=== PATIENT | female | born 1995 | race Two or more races ===

== ENCOUNTER 2023-03-26 13:10 | Outpatient (AMB) | payer OTHER, SELFPAY ==
--- NOTE | 2023-03-26 13:19 | MHC.PC.OV ---
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 by: Self / Same As Patient Allergies No Known Allergies Allergy (Verified 03/26/23 13:28) Medication List - Last Reconciled 03/26/23 by Jaswant Monique CNP No Known Home Meds Tobacco use date assessed: 03/26/23 Dental Screening Dental Screen Date: 03/26/23 Did you have a dental visit in the last 12 months?: Yes Did you have a dental problem in the last 6 months where you did not have access to dental care?: No Was dental information given to patient?: Patient has dentist HPI HPI Comments History of Present Illness Details 28-year-old female presents for transfer of care Her former PCP is who has no longer with the practice. Her last physical exam was on 08/20/2021. She had not had blood work done in a long time She denies significant past medical history. She is taking any medications currently She notes that she is leaving later this month for a year journey for hiking [place] of [place] [facility] and [place], and possible in other countries. She requests a medication to help with altitude sickness. She reports history of headaches, nausea, and fatigue above 700 feet. Nonsmoker, nondrinking, occasional marijuana edibles She notes that notes that she is sexually active, in a polygamous relationship, uses barrier contraceptives, and has no concerns for STDs She notes that her last pap smear test was in January 2023: normal [facility] Medical History (Updated 03/26/23 @ 18:00 by Jaswant Monique CNP) No pertinent past medical history Surgical History (Updated 03/26/23 @ 13:25 by Susy Juares MA) No pertinent past surgical history Family History (Updated 03/26/23 @ 13:25 by Susy Juares MA) Other Chronic mental illness Social History Household Members: Other Both parents involved: Yes Housing: House Patient Tobacco Use Status: Never used Tobacco e-Cigarette/Vaping Use: Never Used service: No Current occupational status: employed 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 1. Little interest or pleasure in doing things: not at all 2. Feeling down, depressed, or hopeless: not at all 3. Trouble falling or staying asleep, or sleeping too much: not at all 4. Feeling tired or having little energy: not at all 5. Poor appetite or overeating: not at all 6. Feeling bad about yourself - or that you are a failure or have let yourself or your family down: not at all 7. Trouble concentrating on things, such as reading the newspaper or watching television: not at all 8. Moving or speaking so slowly that other people could have noticed. Or the opposite - being so fidgety or restless that you have been moving around a lot more than usual: not at all 9. Thoughts that you would be better off or of hurting yourself in some way: not at all Total score: 0 Depression Screening Interpretation: Negative Depression Screening Done: Yes 25486 - PHQ-9 Billing: Yes Source: Developed by Drs. Luis Moncada, Kenzie Infante, Horacio Anguiano and colleagues, with an educational kandis from [employer]. Thrive Questionnaire Date Thrive assessed: 03/26/23 I am a: Patient What is your living situation today?: I have a steady place to live Within the past 12 months, did the food you bought not last and you didn't have the money to get more?: Never true Within the past 12 months, did you worry whether your food would run out before you got money to buy more?: Never true Do you have trouble paying for medicines?: No Do you have trouble getting transportation to medical appointments?: No Do you have trouble paying your heating and electricity bill?: No Do you have trouble taking care of your child, family member or friend?: No Do you have trouble with day-to-day activities such as bathing, preparing meals, shopping, managing finances, etc.?: No Are you currently unemployed and looking for a job?: No Are you interested in more education?: No Please select the resources that you would like help with: None Currently or been in a relationship where the following occur: no concerns reported THRIVE Score: 0 AUDIT C Alcohol Use Questionnaire (AUDIT-C) 1. How often do you have a drink containing alcohol?: Never 3. How often do you have six or more drinks on one occasion?: Never Total Score: 0 VINAY-7 AMB Questionnaire VINAY-7 Date VINAY - 7 assessed: 03/26/23 Feeling nervous, anxious, or on edge: 1 = Several days Not being able to stop or control worryin = Not at all Worrying too much about different things: 0 = Not at all Trouble relaxin = More than half the days Being so restless that it is hard to sit still: 0 = Not at all Becoming easily annoyed or irritable: 0 = Not at all Feeling afraid as if something awful might happen: 0 = Not at all Total VINAY-7 score (0-4 normal; 5-9 mild; 10-14 moderate; 15-21 severe): 3 Source: Developed by Drs. Luis Moncada, Kenzie Infante, Horacio Anguiano and colleagues, with an educational kandis from [employer]. VINAY-7 Assessment Billing VINAY-7 Assessment Tool: VINAY-7 Assessment 41508 Review of Systems Const Details: Denies chills, Denies fatigue, Denies fever(s), Denies headache(s) and Denies weakness HEENT Denies change in vision, Denies dizziness, Denies headache(s), Denies hearing loss, Denies nasal congestion, Denies sinus pain, Denies sinus pressure and Denies sore throat Card Denies chest pain, Denies lightheadedness, Denies dyspnea and Denies other (palpitations) Resp Denies cough, Denies dyspnea and Denies wheezing GI Denies abdominal pain, Denies melena, Denies hematochezia, Denies change in bowel habits, Denies dyspepsia and Denies nausea Denies hematuria and Denies dysuria Musc Denies abnormal gait, Denies myalgias, Denies arthralgias, Denies numbness and Denies tingling Skin/Breast Denies rash, Denies unusual bruising and Denies wounds Neuro Denies abnormal gait, Denies dizziness, Denies headache(s), Denies memory loss, Denies numbness, Denies Sensory deficit (Neuro), Denies tingling and Denies weakness Psych Denies anxiety, Denies depression and Denies memory loss Endo Denies cold intolerance, Denies fatigue, Denies heat intolerance, Denies polydipsia and Denies polyuria Addison/Lymph Denies easy bleeding and Denies easy bruising Aller/Immun Denies wheezing Physical exam (Primary Care) Vital Signs: Last Vital Signs Temp 97.7 F 03/26/23 13:20 Pulse 79 03/26/23 13:20 Resp 13 03/26/23 13:20 BP 102/70 03/26/23 13:20 Pulse Ox 99 03/26/23 13:20 Oxygen Delivery Method Room Air 03/26/23 13:20 BMI result Body Mass Index 25.1 Tobacco/Smoking Status: Tobacco use Status Tobacco use date assessed 03/26/23 03/26/23 13:27 Patient Tobacco Use Status Never used Tobacco 03/26/23 13:27 Tobacco use type 02/11/23 13:14 e-Cigarette/Vaping Use Never Used 03/26/23 13:27 PHQ-9: PHQ-9 Score PHQ-9: Total score 0 03/26/23 13:27 Depression Screening Interpretation: Negative Thrive Assessment: Date of Thrive Assessment Date Thrive assessed 03/26/23 03/26/23 13:27 Currently or been in a relationship where the following occur: no concerns reported Const Other: General: no acute distress, well developed, alert and awake Nutritional Appearance: well nourished Orientation/consciousness: patient oriented x3 HENMT Head: Yes normocephalic and Yes atraumatic Ears: hearing grossly normal bilaterally and TM's normal bilaterally General nose exam: Normal external nose present and Normal nares present Mouth: Normal oral and palatal mucosa present and moist mucous membranes Teeth and gingiva: dentition normal Throat: Yes oropharynx normal Eyes Pupils: Equal, round and reactive pupils present and Pupil accommodation reflex normal EOM: EOMs intact bilaterally Neck Neck: Yes normal visual inspection, Yes no lymphadenopathy and Yes trachea midline Thyroid: Thyroid normal Carotids: no bruits Lymphatic: no lymphadenopathy noted Chest Chest palpation & inspection: normal inspection of the chest Resp Effort & Inspection: normal respiratory effort Auscultation: clear to auscultation bilaterally Cardio Rate: regular rate Rhythm: regular rhythm Heart sounds: S1 normal heart sound present, S2 normal heart sound present, no gallops, no murmurs and no rubs Bruits: no abdominal aortic bruits and no carotid bruits GI Palpation (GI): No Abdominal aortic bruit present, Soft to palpation, nontender, No hepatosplenomegaly present and No Rebound tenderness present Auscultation: normal bowel sounds General: Yes no CVA tenderness Back/Spine/Pelvis Back: no CVA tenderness Cervical Spine: cervical ROM normal and No Cervical spine tenderness Thoracic/Lumbar Spine: thoraco-lumbar ROM normal, No pain with thoraco-lumbar ROM, No thoracic spinal tenderness and No lumbar spinal tenderness Skin General: warm and dry. Normal skin color. Normal skin turgor Lesions: no lesions Rashes: no rashes Trauma: no lacerations or abrasions Wounds: no wounds Nails: normal Neuro General: patient oriented x3, gait normal and CN's II-XI intact bilaterally Cranial nerves: Yes Equal, round and reactive pupils present Cognition (Neuro): normal cognition Gait exam (Neuro): Normal gait present Motor exam (neuro): 5/5 motor strength present throughout Sensory Exam: No Sensory deficit (Neuro) Deep tendon reflexes (DTR's): Right patellar reflex intensity grade: 2+ and Left patellar reflex intensity grade: 2+ Extrem General: Yes normal to inspection, No edema and No calf tenderness Psych Appearance: grossly normal Affect: normal affect Attitude: cooperative Thought process: Normal thought process present Assessment and Plan Assessment & Plan (1) Normal physical exam: Code(s): Z00.00 - Encounter for general adult medical examination without abnormal findings Plan: No significant physical restrictions or limitations noted Labs ordered. Advised to schedule a telehealth visit for review of lab results Healthy diet and routine exercise encouraged Follow-up with symptoms or concerns Verbalized understanding and agreed with treatment plan (2) Altitude sickness preventative measures: Code(s): Z29.89 - Encounter for other specified prophylactic measures Plan: She will be hiking [place] of the country, [place], and possibly other countries for a year She has history of headaches, nausea, and fatigue above 700 feet Acetazolamide as prescribed Follow-up as needed Verbalized understanding and agreed with the treatment plan (3) Laboratory tests ordered as part of a complete physical exam (CPE): Code(s): Z00.00 - Encounter for general adult medical examination without abnormal findings Plan: Fasting labs ordered as part of a complete physical exam. Advised to fast for at least 10 hours before getting labs drawn. May drink water Verbalized understanding and agreed with treatment plan. Orders: Orders Complete Blood Count Auto Diff Today Z00.00 - Encounter for general adult medical examination without abnormal findings Comprehensive Graham. Panel Fast Today Z00.00 - Encounter for general adult medical examination without abnormal findings Lipid Panel Today Z00.00 - Encounter for general adult medical examination without abnormal findings UA CC w/rflx Micro + Cult Today Z00.00 - Encounter for general adult medical examination without abnormal findings TSH reflex Free T4 Today Z00.00 - Encounter for general adult medical examination without abnormal findings Medications: New acetazolamide Start day before ascent and continue 2 to 3 days at maximum altitude; may use once at night thereafter to improve sleep 125 mg PO BID 14 days PRN 28 tabs 4RF altitude sickness Coding Level of Care Code New Pt Prev Care 18-39yr(79014 Diagnoses Normal physical exam Z00.00 Altitude sickness preventative measures Z29.89 Laboratory tests ordered as part of a complete physical exam (CPE) Z00.00 Additional Codes VINAY-7 Assessment Billing - VINAY-7 Assessment Tool: VINAY-7 Assessment 79606 ([id number])
[2023-03-26 13:20] VITALS: BP 102/70; PULSE 79; RESP 13; TEMP 36.5; O2SAT 99; BMI 25.1
== END 2023-03-26 13:57 | disposition home or self-care (01) ==
PROVIDERS: PCP Hospitalist; Visit Provider Nurse Practitioner Family
DX: Z00.00 Encounter for general adult medical examination without abnormal findings (principal); Z29.89 Encounter for other specified prophylactic measures
CPT/HCPCS: 99385

== ENCOUNTER 2023-04-02 09:19 | Outpatient (REF) | payer OTHER, SELFPAY ==
[2023-04-02 09:32] LABS: MANUAL DIFF FLAG NO
[2023-04-02 09:54] LABS: Appearance Urine Clear; Color Urine Yellow; Glucose Urine UA Negative (Negative); Leukocyte Esterase Urine Negative (Negative); Nitrite Urine Negative (Negative); PH 6.5 (5.0-9.0); Specific Gravity - Urine >= 1.030 (1.005-1.025); Urine Blood Negative (Negative); Urine Ketones Negative (Negative); Urine Protein Negative (Neg-Trace)
[2023-04-02 10:01] LABS: Basophils Absolute Auto 0.1 X10*3/uL (0.0-0.2); Eosinophils Absolute Auto 0.3 X10*3/uL (0.0-0.4); Eosinophils Percent Auto 3.6 % (0-4); Hematocrit 38.5 % (37.0-47.0); Hemoglobin 12.9 g/dl (12.0-16.0); Imm Gran Abs Auto 0.02 X10*3/uL (0.00-0.03); Imm Gran Pct Auto 0.3 % (0.0-0.4); Lymphocytes Absolute Auto 2.3 X10*3/uL (1.2-4.9); Lymphocytes Percent Auto 32.1 % (20-40); Mean Corpuscular HGB Conc 33.5 g/dl (31.0-35.0); Mean Corpuscular Hemoglobin 30.1 pg (27.0-33.0); Mean Platelet Volume 9.3 fL (9.4-12.3); Monocytes Absolute Auto 0.8 X10*3/uL (0.1-1.2); Monocytes Percent Auto 10.3 % (2-11); Neutrophils Absolute Auto 3.8 x10*3/uL (2.0-8.3); Neutrophils Percent Auto 52.7 % (45-73); Platelet Count 361 X10*3/uL (160-400); Red Blood Count 4.28 X10*6/uL (4.20-5.50); Red Cell Distribution Width 11.9 % (11.0-16.0); White Blood Count 7.3 X10*3/uL (4.8-10.8)
[2023-04-02 10:33] LABS: Alanine Aminotransferase 11 U/L (0-31); Albumin Level 4.2 g/dL (3.5-5.0); Alkaline Phosphatase 44 U/L (39-117); Anion Gap 10 (12-20); Aspartate Amino Transferase 17 U/L (5-31); Bilirubin Total 0.4 mg/dL (0.0-1.0); Blood Urea Nitrogen 12 mg/dL (9-16); Carbon Dioxide 26 mmol/L (22-29); Chloride 108 mmol/L (96-108); Cholesterol 194 mg/dL (<200); Estimated Glomerular Filt Rate > 60; Glucose Fasting 93 mg/dL (60-99); HDL Cholesterol 47 mg/dL (>40); LDL Cholesterol Calculated 132 mg/dL (<100); Potassium 4.4 mmol/L (3.3-5.1); Sodium 140 mmol/L (135-145); Total Protein 6.9 g/dL (6.5-8.0); Triglycerides 79 mg/dL (<150)
[2023-04-02 10:51] LABS: TSH reflex Free T4 1.16 uIU/mL (0.32-4.0)
== END 2023-04-02 09:20 | disposition home or self-care (01) ==
LOC: HO.LAB 09:19
PROVIDERS: PCP Nurse Practitioner Family; Visit Provider Nurse Practitioner Family
DX: Z00.00 Encounter for general adult medical examination without abnormal findings (principal)
CPT/HCPCS: 36415; 80053; 80061; 81003; 84443; 85025

== ENCOUNTER 2023-04-16 14:26 | Outpatient (AMB) | payer OTHER, SELFPAY ==
--- NOTE | 2023-04-16 14:21 | A.OFFPC_ITS ---
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 Accompanied by: Self / Same As Patient Allergies No Known Allergies Allergy (Verified 04/16/23 14:22) Tobacco use date assessed: 03/26/23 HPI HPI Comments History of Present Illness Details 28-year-old female presents for teleheal th visit for recent lab reviews Her Lab results are unremarkable except for slightly elevated LDL, 132 She offers no complaints and denies acute symptoms at this time [facility] Medical History (Updated 04/16/23 @ 15:17 by Jaswant Monique CNP) No pertinent past medical history Surgical History (Updated 03/26/23 @ 13:25 by Susy Juares MA) No pertinent past surgical history Family History (Updated 03/26/23 @ 13:25 by Susy Juares MA) Other Chronic mental illness Social History Household Members: Other Both parents involved: Yes Housing: House Patient Tobacco Use Status: Never used Tobacco e-Cigarette/Vaping Use: Never Used service: No Current occupational status: employed 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 Luis Moncada, Kenzie Infante, Horacio Anguiano and colleagues, with an educational kandis from [employer]. Review of Systems Const Details: Const Denies chills, Denies fatigue, Denies fever(s), Denies headache(s) and Denies weakness ENT Denies dizziness and Denies headache(s) Card Denies chest pain, Denies lightheadedness, Denies dyspnea and Denies other (Palpitations) Resp Denies cough, Denies dyspnea, Denies wheezing and Denies other ( shortness of breath) GI Denies abdominal pain, Denies melena, Denies hematochezia, Denies change in bowel habits, Denies dyspepsia and Denies nausea Denies hematuria and Denies dysuria Musc Denies abnormal gait, Denies myalgias, Denies arthralgias, Denies numbness and Denies tingling Skin/Breast Denies rash, Denies unusual bruising and Denies wounds Neuro Denies abnormal gait, Denies dizziness, Denies headache(s), Denies memory loss, Denies numbness, Denies Sensory deficit (Neuro), Denies tingling and Denies weakness Psych Denies anxiety, Denies depression, Denies memory loss Endo Denies cold intolerance, Denies fatigue, Denies heat intolerance, Denies polydipsia and Denies polyuria Aller/Immun Denies wheezing Physical exam (Primary Care) Tobacco/Smoking Status: Tobacco use Status Tobacco use date assessed 03/26/23 04/16/23 14:26 Patient Tobacco Use Status Never used Tobacco 04/16/23 14:26 Tobacco use type 02/11/23 13:14 e-Cigarette/Vaping Use Never Used 04/16/23 14:26 Thrive Assessment: Date of Thrive Assessment Date Thrive assessed 03/26/23 04/16/23 14:26 Const Other: Telehealth visit. No physical exam Telehealth Telehealth Location of provider rendering services: practice address Location of patient: address on file Patient Identification confirmed using: Name, : Yes Telehealth method: voice only Patient verbally consented to treatment: Yes Patient verbally consented to billing insurance company: Yes Patient informed of any privacy concerns related to visit: Yes Assessment and Plan Assessment & Plan (1) Elevated LDL cholesterol level: Code(s): E78.00 - Pure hypercholesterolemia, unspecified Plan: LDL is slightly elevated, 132 Advised to limit foods high in saturated fat and avoid foods high trans fat Routine exercise encouraged Encouraged to schedule a complete physical exam for next year Return sooner with symptoms or concerns Verbalized understanding and agreed with treatment plan Medications: Refilled acetazolamide Start day before ascent and continue 2 to 3 days at maximum altitude; may use once at night thereafter to improve sleep 125 mg PO BID PRN 28 tabs 4RF altitude sickness 14 days Coding Level of Care Code Tele Est Pt Level 2 (38100) Diagnoses Elevated LDL cholesterol level E78.00 Time Spent (min) 10
== END 2023-04-16 16:23 | disposition home or self-care (01) ==
LOC: HO.HMGFM 14:27
PROVIDERS: PCP Nurse Practitioner Family; Visit Provider Nurse Practitioner Family
DX: E78.00 Pure hypercholesterolemia, unspecified (principal)
CPT/HCPCS: 99212

== ENCOUNTER 2024-07-24 12:44 | Outpatient (AMB) | payer OTHER, SELFPAY ==
--- NOTE | 2024-07-24 12:46 | MHC.PC.OV ---
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 Required: No Is last menstrual period known: Yes Last menstrual period: 07/07/24 Post menopausal: No Patient : No Allergies No Known Allergies Allergy (Verified 07/24/24 12:59) Medication List - Last Reconciled 07/24/24 by Jaswant Monique CNP acetazolamide orally; Tobacco use date assessed: 07/24/24 Dental Screening Dental Screen Date: 07/24/24 Did you have a dental visit in the last 12 months?: No Did you have a dental problem in the last 6 months where you did not have access to dental care?: No Was dental information given to patient?: Patient has dentist HPI HPI Comments History of Present Illness Details 29-year-old female presents for an extended physical exam. She requests a letter for [employer] work clearance. Acute issue(s) - None Past Medical History - Elevated LDL Social History - Nonsmoker. Does not vape. Does not drink alcohol. Smoke cannabis occasionally - Has been making healthy dietary choices. Exercises routinely. Generally sleep well Health maintenance - Last eye exam was several years ago. Referred to Ophthalmology for routine eye exam - Last dental visit was over a years ago. She has a dental appointment next week - Last tetanus vaccine was more than 10 years ago; received Tdap vaccine today - She notes that she is up-to-date on the full vaccine - Last pap smear test was in 2022 at [facility]: normal. 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 1. Little interest or pleasure in doing things: not at all 2. Feeling down, depressed, or hopeless: not at all 3. Trouble falling or staying asleep, or sleeping too much: not at all 4. Feeling tired or having little energy: not at all 5. Poor appetite or overeating: not at all 6. Feeling bad about yourself - or that you are a failure or have let yourself or your family down: not at all 7. Trouble concentrating on things, such as reading the newspaper or watching television: not at all 8. Moving or speaking so slowly that other people could have noticed. Or the opposite - being so fidgety or restless that you have been moving around a lot more than usual: not at all 9. Thoughts that you would be better off or of hurting yourself in some way: not at all Total score: 0 Depression Screening Interpretation: Negative Depression Screening Done: Yes Source: Developed by Drs. Luis Moncada, Kenzie Infante, Horacio Anguiano and colleagues, with an educational kandis from [employer]. Thrive Questionnaire Date Thrive assessed: 03/26/23 I am a: Patient What is your living situation today?: I have a steady place to live Within the past 12 months, did the food you bought not last and you didn't have the money to get more?: Never true Within the past 12 months, did you worry whether your food would run out before you got money to buy more?: Never true Do you have trouble paying for medicines?: No Do you have trouble getting transportation to medical appointments?: No Do you have trouble paying your heating and electricity bill?: No Do you have trouble taking care of your child, family member or friend?: No Do you have trouble with day-to-day activities such as bathing, preparing meals, shopping, managing finances, etc.?: No Are you currently unemployed and looking for a job?: No Are you interested in more education?: No Please select the resources that you would like help with: None Currently or been in a relationship where the following occur: No concerns reported and I choose not to answer THRIVE Score: 0 AUDIT C Alcohol Use Questionnaire (AUDIT-C) 1. How often do you have a drink containing alcohol?: Never Total Score: 0 VINAY-7 AMB Questionnaire VINAY-7 Date VINAY - 7 assessed: 03/26/23 Feeling nervous, anxious, or on edge: 1 = Several days Not being able to stop or control worryin = Not at all Worrying too much about different things: 0 = Not at all Trouble relaxin = Not at all Being so restless that it is hard to sit still: 0 = Not at all Becoming easily annoyed or irritable: 0 = Not at all Feeling afraid as if something awful might happen: 1 = Several days Total VINAY-7 score (0-4 normal; 5-9 mild; 10-14 moderate; 15-21 severe): 2 Source: Developed by Drs. Luis Moncada, Kenzie Infante, Horacio Anguiano and colleagues, with an educational kandis from [employer]. Review of Systems Const Details: Denies chills, Denies fatigue, Denies fever(s), Denies headache(s) and Denies weakness HEENT Denies change in vision, Denies dizziness, Denies headache(s), Denies hearing loss, Denies nasal congestion, Denies sinus pain, Denies sinus pressure and Denies sore throat Card Denies chest pain, Denies lightheadedness, Denies dyspnea and Denies other (palpitations) Resp Denies cough, Denies dyspnea and Denies wheezing GI Denies abdominal pain, Denies melena, Denies hematochezia, Denies change in bowel habits, Denies dyspepsia and Denies nausea Denies hematuria and Denies dysuria Musc Denies abnormal gait, Denies myalgias, Denies arthralgias, Denies numbness and Denies tingling Skin/Breast Denies rash, Denies unusual bruising and Denies wounds Neuro Denies abnormal gait, Denies dizziness, Denies headache(s), Denies memory loss, Denies numbness, Denies Sensory deficit (Neuro), Denies tingling and Denies weakness Psych Denies anxiety, Denies depression and Denies memory loss Endo Denies cold intolerance, Denies fatigue, Denies heat intolerance, Denies polydipsia and Denies polyuria Addison/Lymph Denies easy bleeding and Denies easy bruising Aller/Immun Denies wheezing Physical exam (Primary Care) Vital Signs: Last Vital Signs Temp 98.0 F 07/24/24 12:51 Pulse 68 07/24/24 12:51 Resp 16 07/24/24 12:51 BP 121/74 07/24/24 12:51 Pulse Ox 100 07/24/24 12:51 Oxygen Delivery Method Room Air 07/24/24 12:51 BMI result Body Mass Index 24.3 Tobacco/Smoking Status: Tobacco use Status Tobacco use date assessed 07/24/24 07/24/24 12:54 Patient Tobacco Use Status Never used Tobacco 07/24/24 12:49 Tobacco use type 02/11/23 13:14 e-Cigarette/Vaping Use Never Used 07/24/24 12:49 PHQ-9: PHQ-9 Score PHQ-9: Total score 0 07/24/24 13:20 Depression Screening Interpretation: Negative Thrive Assessment: Date of Thrive Assessment Date Thrive assessed 03/26/23 07/24/24 12:49 Currently or been in a relationship where the following occur: No concerns reported and I choose not to answer Const Other: General: no acute distress, well developed, alert and awake Nutritional Appearance: well nourished Orientation/consciousness: patient oriented x3 HENMT Head: Yes normocephalic and Yes atraumatic Ears: hearing grossly normal bilaterally and TM's normal bilaterally General nose exam: Normal external nose present and Normal nares present Mouth: Normal oral and palatal mucosa present and moist mucous membranes Teeth and gingiva: dentition normal Throat: Yes oropharynx normal Eyes Pupils: Equal, round and reactive pupils present and Pupil accommodation reflex normal EOM: EOMs intact bilaterally Neck Neck: Yes normal visual inspection, Yes no lymphadenopathy and Yes trachea midline Thyroid: Thyroid normal Carotids: no bruits Lymphatic: no lymphadenopathy noted Chest Chest palpation & inspection: normal inspection of the chest Resp Effort & Inspection: normal respiratory effort Auscultation: clear to auscultation bilaterally Cardio Rate: regular rate Rhythm: regular rhythm Heart sounds: S1 normal heart sound present, S2 normal heart sound present, no gallops, no murmurs and no rubs Bruits: no abdominal aortic bruits and no carotid bruits GI Palpation (GI): No Abdominal aortic bruit present, Soft to palpation, nontender, No hepatosplenomegaly present and No Rebound tenderness present Auscultation: normal bowel sounds General: Yes no CVA tenderness Back/Spine/Pelvis Back: no CVA tenderness Cervical Spine: cervical ROM normal and No Cervical spine tenderness Thoracic/Lumbar Spine: thoraco-lumbar ROM normal, No pain with thoraco-lumbar ROM, No thoracic spinal tenderness and No lumbar spinal tenderness Skin General: warm and dry. Normal skin color. Normal skin turgor Lesions: no lesions Rashes: no rashes Trauma: no lacerations or abrasions Wounds: no wounds Nails: normal Neuro General: patient oriented x3, gait normal and CN's II-XI intact bilaterally Cranial nerves: Yes Equal, round and reactive pupils present Cognition (Neuro): normal cognition Gait exam (Neuro): Normal gait present Motor exam (neuro): 5/5 motor strength present throughout Sensory Exam: No Sensory deficit (Neuro) Deep tendon reflexes (DTR's): Right patellar reflex intensity grade: 2+ and Left patellar reflex intensity grade: 2+ Extrem General: Yes normal to inspection, No edema and No calf tenderness Psych Appearance: grossly normal Affect: normal affect Attitude: cooperative Thought process: Normal thought process present Immunizations Boostrix Tdap 2.5 Lf unit-8 mcg-5 Lf/0.5 mL intramuscular syringe Performing Provider: Jaswant Monique CNP Performing Location: [facility] Administered by: Christopher Treadwell RN on 07/24/24 13:18 Dose Route Admin Location Dispensed Lot Number Expiration Date NDC Multimedia Engineer 0.5 mL IM Left Deltoid 0.5 mL [id number] 10/13/26 05602-749-27 [employer] VIS Given Date VIS Provided VIS Publication Date 07/24/24 Single Vaccine 20 Eligibility Eligibility Date Funding Source Not [facility] Eligible 07/24/24 Private Coding Level of Care Code Est Pt Prev Care 18-39y(69795) Diagnoses Normal physical exam Z00.00 Eye exam, routine Z01.00 Laboratory tests ordered as part of a complete physical exam (CPE) Z00.00 Assessment & Plan Assessment & Plan (1) Normal physical exam: Code(s): Z00.00 - Encounter for general adult medical examination without abnormal findings Category: Medical Plan: Normal physical exam of a 29-year-old female. No significant functional limitation noted. Healthy diet and routine exercise encouraged. Advised to perform lab work and follow-up for a telehealth visit in 2-3 weeks. Return sooner with symptoms or concerns. Verbalized understanding and agreed with treatment plan. Letter given for work clearance. (2) Eye exam, routine: Code(s): Z01.00 - Encounter for examination of eyes and vision without abnormal findings Category: Medical Plan: Last eye exam was several years ago. Referred to Ophthalmology for routine eye exam. (3) Laboratory tests ordered as part of a complete physical exam (CPE): Code(s): Z00.00 - Encounter for general adult medical examination without abnormal findings Category: Medical Plan: Fasting labs ordered as part of a complete physical exam. Advised to fast for at least 10 hours before getting labs drawn. May drink water Verbalized understanding and agreed with treatment plan. Orders: Orders Lipid Panel Today Z00.00 - Encounter for general adult medical examination without abnormal findings Microalbumin, Random (w Creat) Today Z00.00 - Encounter for general adult medical examination without abnormal findings TSH reflex Free T4 Today Z00.00 - Encounter for general adult medical examination without abnormal findings UA CC w/rflx Micro + Cult Today Z00.00 - Encounter for general adult medical examination without abnormal findings TDaP Immunization Today Z23 - Encounter for immunization Complete Blood Count Auto Diff Today Z00.00 - Encounter for general adult medical examination without abnormal findings Comprehensive [place]. Panel Fast Today Z00.00 - Encounter for general adult medical examination without abnormal findings Vitamin D 25-OH Total Today Z00.00 - Encounter for general adult medical examination without abnormal findings Referrals Ophthalmology Referral Z01.00 - Encounter for examination of eyes and vision without abnormal findings
[2024-07-24 12:51] VITALS: BP 121/74; PULSE 68; RESP 16; TEMP 36.7; O2SAT 100; BMI 24.3
== END 2024-07-24 13:17 | disposition home or self-care (01) ==
LOC: HO.HMCFM 12:45
PROVIDERS: PCP Nurse Practitioner Family; Visit Provider Nurse Practitioner Family
DX: Z00.00 Encounter for general adult medical examination without abnormal findings (principal); Z23 Encounter for immunization

== ENCOUNTER → 2024-07-24 12:44 | Outpatient (BNVA) | payer OTHER, SELFPAY | PROVIDERS: PCP Nurse Practitioner Family; Visit Provider Nurse Practitioner Family | DX: Z00.00 Encounter for general adult medical examination without abnormal findings (principal); Z23 Encounter for immunization | CPT/HCPCS: 90471; 90715; 99395 ==

== ENCOUNTER 2024-08-14 10:17 | Outpatient (REF) | payer OTHER, SELFPAY ==
[2024-08-14 10:31] LABS: MANUAL DIFF FLAG NO
[2024-08-14 10:54] LABS: Basophils Absolute Auto 0.1 X10*3/uL (0.0-0.2); Basophils Percent Auto 1.3 % (0-2); Eosinophils Absolute Auto 0.3 X10*3/uL (0.0-0.4); Eosinophils Percent Auto 5.7 % (0-4); Hematocrit 36.1 % (37.0-47.0); Imm Gran Abs Auto 0.01 X10*3/uL (0.00-0.03); Imm Gran Pct Auto 0.2 % (0.0-0.4); Lymphocytes Percent Auto 41.1 % (20-40); Mean Corpuscular HGB Conc 33.2 g/dl (31.0-35.0); Mean Corpuscular Hemoglobin 29.8 pg (27.0-33.0); Mean Corpuscular Volume 89.6 fL (80.0-98.0); Mean Platelet Volume 9.8 fL (9.4-12.3); Monocytes Absolute Auto 0.4 X10*3/uL (0.1-1.2); Monocytes Percent Auto 8.9 % (2-11); Neutrophils Percent Auto 42.8 % (45-73); Platelet Count 257 X10*3/uL (160-400); Red Blood Count 4.03 X10*6/uL (4.20-5.50); Red Cell Distribution Width 11.8 % (11.0-16.0); White Blood Count 4.7 X10*3/uL (4.8-10.8)
[2024-08-14 10:59] LABS: Appearance Urine Clear; Color Urine Yellow; Glucose Urine UA Negative (Negative); Leukocyte Esterase Urine Trace (Negative); Nitrite Urine Negative (Negative); PH 6.5 (5.0-9.0); UMIC TRIGGER UACC YES; Urine Blood Negative (Negative); Urine Ketones Negative (Negative); Urine Protein Negative (Neg-Trace)
[2024-08-14 11:01] LABS: Bacteria Urine None Seen (None Seen); Hyaline Casts Urine 0-2 /LPF (0-2); RBC Urine 0-2 /HPF (0-2); WBC Urine 0-5 /HPF (0-5)
[2024-08-14 11:51] LABS: Alanine Aminotransferase 8 U/L (0-31); Albumin Level 3.9 g/dL (3.5-5.0); Alkaline Phosphatase 36 U/L (39-117); Anion Gap 9 (12-20); Aspartate Amino Transferase 16 U/L (5-31); Bilirubin Total 0.5 mg/dL (0.0-1.0); Blood Urea Nitrogen 7 mg/dL (9-16); Calcium 8.4 mg/dL (8.4-10.2); Carbon Dioxide 24 mmol/L (22-29); Chloride 111 mmol/L (96-108); Cholesterol 154 mg/dL (<200); Estimated Glomerular Filt Rate > 60; Glucose Fasting 92 mg/dL (60-99); HDL Cholesterol 40 mg/dL (>40); LDL Cholesterol Calculated 105 mg/dL (<100); Potassium 4.6 mmol/L (3.3-5.1); Sodium 139 mmol/L (135-145); Total Protein 6.1 g/dL (6.5-8.0); Triglycerides 45 mg/dL (<150)
[2024-08-14 11:51] LABS: Creatinine Urine 185.24 mg/dL; Microalbum/Creatinine Ratio Ur 3.2 ug/mg cr (<30)
[2024-08-14 12:07] LABS: TSH reflex Free T4 0.28 uIU/mL (0.32-4.0); Vitamin D 25-OH Total 28.1 ng/mL (>30)
[2024-08-14 12:57] LABS: Free T4 (Free Thyroxine) 1.03 ng/dL (0.71-1.85)
== END 2024-08-14 10:18 | disposition home or self-care (01) ==
LOC: HO.LAB 10:17
PROVIDERS: PCP Nurse Practitioner Family; Visit Provider Nurse Practitioner Family
DX: Z00.00 Encounter for general adult medical examination without abnormal findings (principal)
CPT/HCPCS: 36415; 80053; 80061; 81001; 82043; 82306; 82570; 84439; 84443; 85025

== ENCOUNTER 2024-08-28 12:31 | Outpatient (AMB) | payer OTHER, SELFPAY ==
--- NOTE | 2024-08-28 12:28 | A.OFFPC_ITS ---
Intake Visit Reasons: Telehealth 2-3 wks labs review Intake Note: patient here for 2-3 wks Telehealth follow up for lab review [employer] Required: No Is last menstrual period known: Yes Last menstrual period: 08/05/24 Post menopausal: No Patient : No Allergies No Known Allergies Allergy (Verified 08/28/24 12:29) Tobacco use date assessed: 08/28/24 Dental Screening Dental Screen Date: 08/28/24 Did you have a dental visit in the last 12 months?: Yes Did you have a dental problem in the last 6 months where you did not have access to dental care?: No Was dental information given to patient?: Patient has dentist HPI HPI Comments History of Present Illness Details 29-year-old [facility] of recent lab results. She admits to making healthy lifestyle changes. She offers no complaints and denies acute symptoms at this time. 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 Cognitive needs: No Hearing needs: No Vision needs: No Female Reproductive History Menstrual Date of last menstrual period: 08/05/24 Questionnaire Thrive Questionnaire Date Thrive assessed: 07/24/24 I am a: Patient What is your living situation today?: I have a steady place to live Within the past 12 months, did the food you bought not last and you didn't have the money to get more?: Never true Within the past 12 months, did you worry whether your food would run out before you got money to buy more?: Never true Do you have trouble paying for medicines?: No Do you have trouble getting transportation to medical appointments?: No Do you have trouble paying your heating and electricity bill?: No Do you have trouble taking care of your child, family member or friend?: No Do you have trouble with day-to-day activities such as bathing, preparing meals, shopping, managing finances, etc.?: No Are you currently unemployed and looking for a job?: No Are you interested in more education?: No Please select the resources that you would like help with: None THRIVE Score: 0 AUDIT C Alcohol Use Questionnaire (AUDIT-C) 3. How often do you have six or more drinks on one occasion?: Never Total Score: 0 VINAY-7 AMB Questionnaire VINAY-7 Date VINAY - 7 assessed: 03/26/23 Source: Developed by Drs. Luis Moncada, Kenzie Infante, Horacio Anguiano and colleagues, with an educational kandis from [employer]. Review of Systems Const Details: Denies chills, Denies fatigue, Denies fever(s), Denies headache(s) and Denies weakness Cardiac Denies chest pain, Denies claudication, Denies leg edema, Denies lightheadedness, Denies palpitations, Denies dyspnea, Denies dyspnea on exertion, Denies orthopnea and Denies other (Loss of consciousness) Resp Denies cough, Denies excessive phlegm production, Denies dyspnea, Denies dyspnea on exertion, Denies snoring and Denies wheezing Physical exam (Primary Care) Tobacco/Smoking Status: Tobacco use Status Tobacco use date assessed 08/28/24 08/28/24 12:29 Patient Tobacco Use Status Never used Tobacco 08/28/24 12:29 Tobacco use type 07/24/24 13:17 e-Cigarette/Vaping Use Never Used 08/28/24 12:29 Thrive Assessment: Date of Thrive Assessment Date Thrive assessed 07/24/24 08/28/24 12:29 Const Other: Patient is alert and oriented x3. Telehealth Telehealth Telehealth Platform: Telephone Location of provider rendering services: practice address Location of patient: address on file Patient Identification confirmed using: Name, : Yes Telehealth method: voice only Patient verbally consented to treatment: Yes Patient verbally consented to billing insurance company: Yes Patient informed of any privacy concerns related to visit: Yes Coding Level of Care Code Tele Est Pt Level 3 (91714) Diagnoses Elevated LDL cholesterol level E78.00 Vitamin D deficiency E55.9 Elevated TSH R79.89 Time Spent (min) 15 Assessment & Plan Assessment & Plan (1) Elevated LDL cholesterol level: Code(s): E78.00 - Pure hypercholesterolemia, unspecified Category: Medical Plan: Recent LDL level is slightly elevated, 105, HDL level is slightly low, 40. Advised to limit foods high in saturated fat and avoid foods high in trans fat. Routine exercise encouraged. Will monitor lipid panel annually or if presents with related symptoms or concerns. Verbalized understanding and agreed with the plan. (2) Vitamin D deficiency: Code(s): E55.9 - Vitamin D deficiency, unspecified Category: Medical Plan: Recent vitamin-D level is slightly low, 28.1. Vitamin D3 25 mcg daily ordered; advised to take as prescribed. Informed that the sun is a good source of vitamin-D. Advised to perform vitamin-D blood work 2-3 days before next visit. Follow-up for telehealth visit in 6 weeks. Verbalized understanding and agreed with the plan. (3) Elevated TSH: Code(s): R79.89 - Other specified abnormal findings of blood chemistry Category: Medical Plan: Recent TSH is slightly low, 0.28, free T4 is normal. Equivocal. Will recheck TSH/T4 and make changes as needed. Orders: Orders Vitamin D 25-OH Total Today E55.9 - Vitamin D deficiency, unspecified Medications: New cholecalciferol (vitamin D3) 25 mcg PO DAILY 90 tabs 3RF 90 days
== END 2024-08-28 13:00 | disposition home or self-care (01) ==
LOC: HO.HMCFM 12:31
PROVIDERS: PCP Nurse Practitioner Family; Visit Provider Nurse Practitioner Family
DX: E78.00 Pure hypercholesterolemia, unspecified (principal); E55.9 Vitamin D deficiency, unspecified; R79.89 Other specified abnormal findings of blood chemistry

== ENCOUNTER 2024-09-06 14:37 | Outpatient (REF) | payer OTHER, SELFPAY ==
--- OUTSIDE RECORDS SUMMARY | 2024-09-06 15:10 | XMS_ITS | Clinical Summary ---
Author Organization [facility] Address [address] [place] [address] [place], [place] [id number] Phone Care Team Providers Care Aix System Administrator Name Role Phone Jaime Wells MD Primary Care Provider Allergies No known active allergies Medications No known medications Active Problems Problem Noted Date Diagnosed Date Right shoulder pain 08/11/2021 Social History Tobacco Use Types Packs/Day Years Used Date Smoking Tobacco: Never Smokeless Tobacco: Never Tobacco Cessation:Counseling Given: Not Answered Alcohol Use Standard Drinks/Week Comments No 0 (1 standard drink = 0.6 oz pur e alcohol) Education Answer Date Recorded Are you interested in more education? Not on eliu e 06/12/2022 Are you concerned about learning? Not on file 06/12/2022 No 06/12/2022 No 06/12/2022 Digital Access Answer Date Recorded No 07/10/2022 No 07/10/2022 Reliable internet access at home? Not on file 07/10/2022 Device with a working camera? Not on file Comments No Sex and Gender Information Value Date Recorded Sex Assigned at Female 02/22/2017 9:38 AM EST Legal Sex Female 8:56 PM EDT Gender Identity Female 02/22/2017 9:38 AM EST Sexual Orientation Queer 02/22/2017 9: 38 AM EST Last Filed Vital Signs Vital Sign Reading Time Taken Comments Blood Pressure 110/76 08/05/2022 8:22 AM EDT Pulse 80 08/05/2022 8:22 AM EDT Temperature 36.7 C (98.1 F) 08/05/2022 8:22 AM EDT Respiratory Rate 18 08/05/2022 8:22 AM EDT Oxygen Saturation 97% 08/05/2022 8:22 AM EDT Inhaled Oxygen Concentration - - Weight 62.6 kg (138 lb) 07/30/2022 9:51 AM EDT Height 157.5 cm (5' 2 ) 07/30/2022 9:51 AM EDT Body Mass Index 25.24 07/30/2022 9:51 AM EDT Plan of Treatment Health Maintenance Due Date Last Done Comments Adult Td,Tdap Booster 1993 DEPRESSION SCREENING 2005 HEPATITIS C SCREENING 2011 HIV ONE-TIME SCREENING (18-6 5 YEARS) 2011 PAP SMEAR 2014 COVID-19 VACCINE (2023-2 5 season) 2023 06/08/2020, 05/11/2020 SMOKING STATUS SCREENING (On ce After 26 Yrs) Completed 07/30/2022 HEPATITIS A VACCINES Aged Out No long er eligible based on patient's age to complete this topic HIB VACCINES Aged Out No longer eligi ble based on patient's age to complete this topic MENINGOCOCCAL VACCINES (ACWY) Aged Out No longer eligible based on patient's age to complete this topic MENINGOCOCCAL VACCINES (B) Aged Out N o longer eligible based on patient's age to complete this topic PNEUMOCOCCAL VACCINES (0-49 years) Aged Out No longer eligible b ased on patient's age to complete this topic Medical Devices Not on file Insurance [facility] [employer] [place] [address] [place] [address] [place] [address] [place] [address] [place] [address] [place] [address] [place] [address] [place] [address] ACO [facility] [place] [address] [place] [address] ACO Member Subscriber Plan / Payer (Ef fective 2021-Present) Name:Meggan Santos Relation to Subscriber:Self Name:Danielle Meggan Payer ID:[id number] Group ID:[id number] Type:Medicaid Address: [place] [id number] [facility] ACO Care Teams Aix System Administrator Relationship Specialty Start Date End Date Jaime Wells MD [address] [place] [id number] PCP - General Family Medicine 08/11/21 Additional Source Comments The information contained in this document represents components of the legal health record. It is not the complete legal health record.[facility]
== END 2024-09-06 14:38 | disposition home or self-care (01) ==
LOC: HO.LAB 14:37
PROVIDERS: Visit Provider Nurse Practitioner Family
DX: Z13.89 Encounter for screening for other disorder (principal)

== ENCOUNTER 2024-09-08 11:19 | Outpatient (REF) | payer OTHER, SELFPAY ==
--- OUTSIDE RECORDS SUMMARY | 2024-09-08 11:22 | XMS_ITS | Clinical Summary ---
Author Organization [facility] Address [address] [place] [address] [place], [place] [id number] Phone Care Team Providers Care Clinical Informatics Spec Name Role Phone Jaime Wells MD Primary [...] topic Medical Devices Not on file Insurance [facility] [employer] [place] [address] [place] [address] [place] [address] [place] [address] [place] [address] [place] [address] [place] [address] [place] [address] ACO [facility] [place] [place] [address] [place] [address] ACO Member Subscriber Plan / Payer (Ef fective 2021-Present) Name:Meggan Santos Relation to Subscriber:Self Name:Danielle Meggan Payer ID:[id number] Group ID:[id number] Type:Medicaid Address: [place] [id number] [facility] ACO Care Teams Clinical Informatics Spec Relationship Specialty Start Date End Date Jaime Wells MD [address] [place] [id number] PCP - General Family Medicine 08/11/21 Additional Source Comments The information contained in this document represents components of the legal health record. It is not the complete legal health record.[facility]
[2024-09-12 18:29] LABS: Entamoeba histolytica Ag Stl NOT DETECTED
== END 2024-09-08 11:20 | disposition home or self-care (01) ==
LOC: HO.LNP 11:19
PROVIDERS: Visit Provider Nurse Practitioner Family
DX: Z91.89 Other specified personal risk factors, not elsewhere classified (principal)
CPT/HCPCS: 87015; 87177; 87209; 87272; 87337

== ENCOUNTER 2024-09-22 09:16 | Outpatient (AMB) | payer OTHER, SELFPAY ==
[2024-09-22 10:09] VITALS: BP 102/74; PULSE 67; TEMP 37.2; O2SAT 99; BMI 23.6
--- NOTE | 2024-09-22 10:09 | MHC.OFFWIV ---
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 which started when she was kicked by a horse when she was 14 years of age followed by a ?head butt? from a dog presenting for evaluation after hitting her head on the side of a wall on September 10. Patient states she was pulling a drawer out of her dresser that was stuck and when the drawer came loose she fell backward striking the left side of her head on the wall. There was no loss of consciousness as a result of this injury. Patient states that she has had difficult focusing her eyes and a persistent headache on the left side. Patient denies having any lightheadedness, photophobia, floaters, fevers, chills, nausea, vomiting, neck pain or difficulty ambulating. Patient also states on August 26 she was struck by a wood beam that a child was carrying. Similarly, there was no loss of consciousness as a result of this injury. Patient has not been evaluated medically since her injury on August 26. 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 She does not wear contacts or glasses and has not had a recent ophthalmological evaluation. 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 Cognitive needs: No Hearing needs: No Vision needs: No Female Reproductive History Menstrual Date of last menstrual period: 09/18/24 Review of Systems Const All systems reviewed & are unremarkable except as noted in HPI and below Reports no additional complaints, Denies fatigue, Denies frequent falls and Reports headache(s) (left sided) Eyes Reports no additional complaints, Reports change in vision ( difficulty focusing ), Denies floaters, Denies loss of peripheral vision and Denies loss of vision ENT Reports no additional complaints, Denies vertigo, Denies dizziness, Denies otalgia, Denies facial pain, Reports headache(s) (left sided) and Denies disequilibrium Card Reports no additional complaints Resp Reports no additional complaints GI Reports no additional complaints Reports no additional complaints Musc Reports no additional complaints and Denies abnormal gait Skin/Breast Reports system reviewed and no additional complaints, except as documented Neuro Reports no additional complaints, Denies Neuro-related abnormal movements, Denies abnormal gait, Denies confusion, Denies vertigo, Denies dizziness, Denies frequent falls, Reports headache(s) (left sided), Denies lack of coordination, Denies focal weakness, Denies loss of vision, Denies memory loss and Denies disequilibrium Psych Reports no additional complaints, Denies confusion and Denies memory loss Endo Reports no additional complaints and Denies fatigue Addison/Lymph Reports no additional complaints Aller/Immun Reports no additional complaints Physical Exam Exam Exam: Oriented x3, able to name months sequentially backwards, can name date, day of week, season, year, president and spell [employer] backwards without hesitation. Vital Signs: Last Vital Signs Temp 98.9 F 09/22/24 10:09 Pulse 67 09/22/24 10:09 BP 102/74 09/22/24 10:09 Pulse Ox 99 09/22/24 10:09 Oxygen Delivery Method Room Air 09/22/24 10:09 BMI result Body Mass Index 23.6 Const General: cooperative, healthy appearing, comfortable, no acute distress, well developed, alert, awake and Physically active; No confusion, ill appearing, lethargic, patient obtunded or poor hygiene Nutritional Appearance: average body habitus Orientation/consciousness: patient oriented x3, No confusion, No patient obtunded and No lethargic Limitations: no limitations, No altered mental status and No behavioral limitations HEENT Head: Yes normal to inspection and Yes normocephalic Ears: hearing grossly normal bilaterally, external ears normal, TM's normal bilaterally and EAC's normal General nose exam: Normal external nose present Eyes General: appearance normal, both eyes and all related structures Visual Vallejo: normal visual vallejo by confrontation Alignment and Position: alignment normal and position normal Periorbital: periorbital findings normal Eyelids: Yes eyelids normal Conjunctivae: conjunctivae normal Sclerae: sclerae normal Corneas: corneas normal Pupils: Equal, round and reactive pupils present, Pupils normal by confrontation, Pupil accommodation reflex normal and not pinpoint EOM: EOMs intact bilaterally Direct Ophthalmoscopy: normal light reflex and no photophobia Back/Spine/Pelvis Cervical Spine: normal cervical lordosis, cervical ROM normal, No cervical muscular tenderness, No pain with cervical ROM, No cervical spasm and No Cervical spine tenderness Skin General skin exam: no rashes or lesions noted Neuro General: patient oriented x3, CN's II-XI intact bilaterally, No confusion and No patient obtunded Cranial nerves: Yes Equal, round and reactive pupils present and Yes Normal facial strength present Cognition (Neuro): normal cognition Gait exam (Neuro): Normal gait present Motor exam (neuro): 5/5 motor strength present throughout Coordination: [id number] test normal and tandem gait normal Psych Appearance: grossly normal Mental Status: mental status grossly normal Speech and movement: Normal speech and movement present Affect: normal affect Attitude: cooperative Thought process: Normal thought process present Thought content: Normal thought content present Insight: Good insight present (Psych) Judgement: Good judgement present (Psych) Assessment & Plan Assessment & Plan (1) Headache: Comment: Patient has a complicated history of head injury and subsequent concussions. Today patient is neurologically intact, pleasant, interactive and appropriate interview and physical examination. There is no clinical concern for concussion at this time and no further imaging or testing is warranted. Patient will be discharged home and instructed to use Tylenol or ibuprofen as needed for her headache and stay very well hydrated with water. Patient is in agreement with this plan of care. Code(s): R51.9 - Headache, unspecified Qualifiers: Headache type: unspecified Headache chronicity pattern: unspecified pattern Intractability: not intractable Qualified Code(s): R51.9 - Headache, unspecified Plan: Ibuprofen or Tylenol as needed for headache, follow up with PCP as needed. Coding Level of Care Code Est Pt Level 3 (28630) Diagnoses Nonintractable headache, unspecified chronicity pattern, unspecified headache type R51.9 Headache type: unspecified Headache chronicity pattern: unspecified pattern Intractability: not intractable Time Spent (min) 20
== END 2024-09-22 10:50 | disposition home or self-care (01) ==
PROVIDERS: PCP Nurse Practitioner Family; Visit Provider Physician Assistant
DX: R51.9 Headache, unspecified (principal)

== ENCOUNTER → 2024-09-22 09:16 | Outpatient (BNVA) | payer OTHER, SELFPAY | PROVIDERS: PCP Nurse Practitioner Family; Visit Provider Physician Assistant | DX: R51.9 Headache, unspecified (principal); Z87.828 Personal history of other (healed) physical injury and trauma | CPT/HCPCS: 99212 ==

== ENCOUNTER 2024-10-09 13:19 | Outpatient (REF) | payer OTHER, SELFPAY ==
--- OUTSIDE RECORDS SUMMARY | 2024-10-09 14:40 | XMS_ITS | Clinical Summary ---
Author Organization [facility] Address [address] [place] [address] [place], [place] [id number] Phone Care Team Providers Care Photogrammetric Surveyor Name Role Phone Jaime Wells MD Primary [...] topic Medical Devices Not on file Insurance [facility] [employer] [place] [address] [place] [address] [place] [address] [address] [address] ACO [facility] [place] [address] [address] ACO Member Subscriber Plan / Payer (Ef fective 2021-Present) Name:Meggan Santos Relation to Subscriber:Self Name:Danielle Meggan Payer ID:[id number] Group ID:[id number] Type:Medicaid Address: [place] [id number] [facility] [employer] Care Teams Photogrammetric Surveyor Relationship Specialty Start Date End Date Jaime Wells MD [address] [place] [id number] PCP - General Family Medicine 08/11/21 Additional Source Comments The information contained in this document represents components of the legal health record. It is not the complete legal health record.[facility]
== END 2024-10-09 13:20 | disposition home or self-care (01) ==
LOC: HO.LAB 13:19
PROVIDERS: PCP Nurse Practitioner Family; Visit Provider Nurse Practitioner Family
DX: E55.9 Vitamin D deficiency, unspecified (principal)
CPT/HCPCS: 36415; 82306